=== PATIENT | male | born 1950 | race Caucasian/White ===

== ENCOUNTER 2023-10-23 14:00 | Inpatient (IN) | payer OTHER ==
[~2023-10-23] VITALS: Ht 172.7 cm; Wt 95.7 kg
[2023-10-23 10:59] VITALS: BP 118/84; PULSE 98; RESP 19
[2023-10-23 11:20] LABS: ALBUMIN 3.7 g/dL (3.5-5.0); CREATININE 0.9 mg/dL (0.5-1.3); POTASSIUM 5.5 mmol/L (3.5-5.1)
[~2023-10-23 14:00] MED LIST: BRIM5DRO5 OD; CARB1DRO40 OP; DOXA4TAB3 PO; MAGN250C PO; OXYB5TAB20 PO; PANT40TA54 PO; PRED5DRO25 OU; potassium PO
[2023-10-29] VITALS (33 sets, daily range): BP systolic 100–146; BP diastolic 67–90; PULSE 89–115; RESP 12–20; O2SAT 96–99
[2023-10-29] MEDS: LACTATED RINGERS 1000ML 1,000 ML IV ONE (06:37)
[2023-10-29 06:40] LABS: CREATININE 0.8 mg/dL (0.5-1.3); POTASSIUM 4.2 mmol/L (3.5-5.1)
[2023-10-29] MEDS: ACETAMINOPHEN 1,000 MG/100 ML VIAL IV ONE (06:48)
[2023-10-29] MEDS: FAMOTIDINE 20MG VIAL IV ONE (06:48)
[2023-10-29] MEDS ORDERED: ROPIVACAINE 0.5% 5MG/ML 30ML ONE (06:50)
[2023-10-29] MEDS ORDERED: KETAMINE 50MG/ML SYRINGE 50 MG/ML DISP.SYRIN ONE (06:51)
[2023-10-29] MEDS ORDERED: LIDOCAINE PF 100MG/5ML (2%) SYRINGE 5ML ONE (06:55)
[2023-10-29] MEDS ORDERED: PROPOFOL 10 MG/ML 20ML VIAL IV ONE (06:56)
[2023-10-29] MEDS ORDERED: ROCURONIUM BROMIDE 10MG/1ML 5ML VL ONE ×2 (06:56→07:24)
[2023-10-29] MEDS ORDERED: FENTANYL CITRATE PF 50 MCG/1 ML 2ML VIAL ONE (06:57)
[2023-10-29] MEDS ORDERED: TRANEXAMIC ACID 1000MG/10ML ONE (07:03)
[2023-10-29] MEDS ORDERED: DEXAMETHASONE SOD PHOSPHATE 10MG/ML 1ML VIAL ONE (07:15)
[2023-10-29] MEDS ORDERED: ONDANSETRON 4MG INJ ONE (07:15)
[2023-10-29] MEDS: CEFAZOLIN SODIUM 2 GM VIAL ONE (07:25)
[2023-10-29] MEDS ORDERED: PHENYLEPHRINE HCL 10 MG/ML 1ML VIAL IV ONE (07:32)
[2023-10-29] MEDS: KETOROLAC 30MG VIAL (30MG/ML) ONE (07:57)
[2023-10-29] MEDS: ROPIVACAINE 0.5% 5MG/ML 30ML ONE (07:58)
[2023-10-29] MEDS ORDERED: NEOSTIGMINE METHYLSULFATE 1MG/ML IV ONE (09:09)
[2023-10-29] MEDS ORDERED: GLYCOPYRROLATE 0.2 MG/ML 5 ML VIAL ONE (09:09)
[2023-10-29] MEDS ORDERED: POTASSIUM CHLORIDE 10% ELIXIR 20 MEQ/15 ML UDCUP PO PRN (09:30)
[2023-10-29] MEDS ORDERED: POTASSIUM CHLORIDE 20MEQ/100ML 100 ML IV PRN (09:30)
[2023-10-29] MEDS ORDERED: ONDANSETRON 4MG INJ IVP PRN (09:30)
[2023-10-29] MEDS ORDERED: KCL 20 MEQ ERTAB PO PRN (09:30)
[2023-10-29] MEDS ORDERED: DiphenhydrAMINE HCL 50 MG/ML VIAL IVP PRN (09:30)
[2023-10-29] MEDS ORDERED: CYCLOBENZAPRINE HCL 10 MG TABLET PO PRN (09:30)
[2023-10-29] MEDS ORDERED: FERROUS FUMARATE 324 MG TABLET PO PRN (09:30)
[2023-10-29] MEDS ORDERED: CALCIUM CARB 500MG PO PRN (09:30)
[2023-10-29] MEDS: FENTANYL CITRATE PF 50 MCG/1 ML 2ML VIAL ONE ×2 (10:09→10:26)
[2023-10-29] MEDS: KETOROLAC 15MG/ML VIAL (15MG/ML) IV SCH ×2 (10:40→19:02)
[2023-10-29] MEDS: HYDROCODONE/ACETAMINOPHEN 5/325 MG TAB PO PRN (11:44)
[2023-10-29] MEDS: KETOROLAC 15MG/ML VIAL (15MG/ML) ONE (12:18)
[2023-10-29] MEDS: GABAPENTIN 100 MG CAPSULE PO SCH (12:29)
[2023-10-29] MEDS: GABAPENTIN 100 MG CAPSULE ONE (12:29)
[2023-10-29] MEDS: 0.9%NACL 1000ML 1,000 ML IV SCH (12:31)
[2023-10-29] MEDS ORDERED: CARBOXYMETHYLCELLULOSE SODIUM OP PRN (13:00)
[2023-10-29] MEDS: CEFAZOLIN SODIUM 2 GM VIAL IVPB SCH (13:52)
[2023-10-29] MEDS: POTASSIUM PO SCH (21:00)
[2023-10-29] MEDS: BRIMONIDINE TARTRATE 0.2% 5 ML BOTTLE OD SCH (21:00)
[2023-10-29] MEDS: DOCUSATE SODIUM 100 MG CAP PO SCH (21:24)
[2023-10-29] MEDS: PANTOPRAZOLE 40 MG TAB DR PO SCH (21:24)
[2023-10-29] MEDS: OXYBUTYNIN CHLORIDE 5 MG TABLET PO SCH (21:25)
[2023-10-29] MEDS: DOXAZOSIN MESYLATE 2 MG TABLET PO SCH (21:25)
[2023-10-30 04:47] LABS: HEMATOCRIT 33.1 % (42-54); MEAN CORPUSCULAR HGB CONC 34.4 g/dL (32.0-36.0); MEAN CORPUSCULAR VOLUME 95.9 fL (79-99); RED BLOOD CELL COUNT(AUTO) 3.45 MIL/uL (4.50-6.20); RED CELL DISTRIBUTION WIDTH 12.6 % (11.0-15.5); WHITE BLOOD COUNT (AUTO) 10.5 K/uL (4.8-10.8)
[2023-10-30 05:08] LABS: CREATININE 1.1 mg/dL (0.5-1.3); POTASSIUM 4.2 mmol/L (3.5-5.1)
[2023-10-30 07:15] VITALS: BP 109/77; PULSE 90; RESP 18
[2023-10-30 08:00] VITALS: O2SAT 96
[2023-10-30] MEDS: ASPIRIN 325MG EC TAB PO SCH (10:03)
[2023-10-30] MEDS: PREDNISOLONE 1% DROPS OU SCH (10:03)
[2023-10-30] MEDS: POLYETHYLENE GLYCOL 3350 17 GM POWD.PACK PO SCH (10:03)
[2023-10-30 11:46] VITALS: BP 104/67; PULSE 96; RESP 18
[2023-10-30 14:00] VITALS: O2SAT 96
[2023-10-30 15:20] VITALS: BP 111/82; PULSE 103; RESP 18
[2023-10-30] MEDS: KETOROLAC 15MG/ML VIAL (15MG/ML) IV PRN (16:15)
[2023-10-30] MEDS: LACTULOSE 20 GM/30 ML UDCUP PO PRN (16:16)
[2023-10-30] MEDS ORDERED: CREON6 PO (20:48)
[2023-10-30] MEDS: LIPASE/PROTEASE/AMYLASE 5000/17000/24000 PO SCH (22:39)
[2023-10-31] VITALS (8 sets, daily range): BP systolic 96–125; BP diastolic 58–81; PULSE 94–111; RESP 16–20; O2SAT 92–96
[2023-10-31] MEDS ORDERED: DOCU-116 PO (17:05)
[2023-10-31] MEDS ORDERED: LACT PO (17:05)
[2023-10-31] MEDS ORDERED: HYDR-4060 PO (17:05)
[2023-10-31] MEDS ORDERED: ASPI-891 PO (17:05)
[2023-10-31] MEDS ORDERED: CYCL-309 PO (17:05)
[2023-11-01] VITALS: BP 114/75; PULSE 106; RESP 18
[2023-11-01 07:46] VITALS: BP 108/71; PULSE 99; RESP 18
[2023-11-01 08:00] VITALS: O2SAT 94
[2023-11-01] MEDS ORDERED: BISACODYL 10 MG SUPP.RECT RC PRN (09:30)
== END 2023-11-01 11:25 | DRG 470 ==
LOC: DAHIP 10-29 05:36 → 4DH 10-29 12:05
PROVIDERS: ADMIT Student in an Organized Health Care Education/Training Program; ATTEND Student in an Organized Health Care Education/Training Program
PROC: 0SRC069 Replacement of Right Knee Joint with Oxidized Zirconium on Polyethylene Synthetic Substitute, Cemented, Open Approach (ICD-10-PCS; principal; 2023-10-29 07:00)
DX: M17.11 Unilateral primary osteoarthritis, right knee (principal); D62 Acute posthemorrhagic anemia; M25.561 Pain in right knee; M23.8X1 Other internal derangements of right knee; K59.00 Constipation, unspecified; Z87.891 Personal history of nicotine dependence
CPT/HCPCS: 36415; 73560; 80048; 82040; 84134; 85027; 86140; 87641; 93005; G0378; J1100; J1885; J2001; J2371; J2405; J2704; J2710; J2795; J3010; J3490; J7120; J7510; A4213; A4215; A4216; A4221; A4222; A4223; A4600; A4649; A4657; A4663; A4930; A5120; A6255; C1713; C1776; G0168; J0690